=== PATIENT | male | born 1965 | race Caucasian/White ===

== ENCOUNTER 2016-08-07 06:31 | Day surgery (SDC) | payer OTHER ==
[2016-08-01 08:17] VITALS: BMI 43.0
--- NOTE | 2016-08-01 08:43 | PAT Medication Instructions ---
Service Date Aug 01, 2016. Current Home Medication List Amphetamine-Dextroamphetamine 10MG (Adderall 10MG), 10 MG PO UD PRN for ON WORKING DAYS Aspirin (Aspirin Ec), 81 MG PO HS Cholecalciferol (Vitamin D3), 1 TAB PO HS Cyanocobalamin (Vitamin B12), 1 TAB PO QAM Dulaglutide (Trulicity), 1 DOSE IM SUNDAY Glipizide (Glipizide), 2 TAB PO BID Metformin Hcl (Glucophage), 1,000 MG PO BID Testosterone Cypionate (Testosterone Cypionate), 1 DOSE INJ Q2WK Medication Instructions For Your Scheduled Surgery - Continue as usual: Dulaglutide (Trulicity), 1 DOSE IM SUNDAY Testosterone Cypionate (Testosterone Cypionate), 1 DOSE INJ Q2WK - Hold the following medications 48 hours prior to surgery: Metformin Hcl (Glucophage), 1,000 MG PO BID - Hold the following medications the morning of surgery: Glipizide (Glipizide), 2 TAB PO BID Cyanocobalamin (Vitamin B12), 1 TAB PO QAM Amphetamine-Dextroamphetamine 10MG (Adderall 10MG), 10 MG PO UD PRN for ON WORKING DAYS - Take the following medications as scheduled the night before surgery: Glipizide (Glipizide), 2 TAB PO BID Cholecalciferol (Vitamin D3), 1 TAB PO HS Aspirin (Aspirin Ec), 81 MG PO HS If you have any questions please call us at [phone] (Rose Gentile PA-C) or [phone] or [phone]
--- NOTE | 2016-08-01 09:38 | DIAGNOSTIC IMAGING REPORT ---
CHEST PREADMISSION(PA/LAT) HISTORY: Preop. COMPARISON: None. FINDINGS: Small linear density at the left lung base likely represents scarring or subsegmental atelectasis. The lungs are otherwise clear. No pleural effusions. No pneumothorax. The heart is normal in size. IMPRESSION: No acute process. Electronically signed by: Wisam Tolbert M.D. 08/01/2016 9:36 AM Dictated Date/Time: 08/01/2016 9:35 AM
[2016-08-01 09:44] LABS: BASO % 0.4 %; BASO ABS # 0.03 K/uL (0-0.2); COMPLETE YES; EOS % 4.5 %; HEMATOCRIT 42.9 % (42-52); IG% 0.1 %; LYMPH % 37.8 %; LYMPH ABS # 2.77 K/uL (1.2-3.4); MEAN CELL VOLUME 86.1 fL (80-100); MEAN CORPUSCULAR HEMOGLOBIN 30.5 pg (25-34); MEAN CORPUSCULAR HGB CONC 35.4 g/dl (32-36); MEAN PLATELET VOLUME 10.2 fL (7.4-10.4); MONO % 10.2 %; PLATELET COUNT 261 K/uL (130-400); RED BLOOD COUNT 4.98 M/uL (4.7-6.1); WHITE BLOOD COUNT 7.33 K/uL (4.8-10.8)
[2016-08-01 09:57] LABS: INR 0.9 (0.9-1.1); PARTIAL THROMBOPLASTIN RATIO 1.1
[2016-08-01 13:47] LABS: URINE APPEARANCE CLEAR (CLEAR); URINE BILIRUBIN NEG (NEG); URINE COLOR YELLOW; URINE NITRITE NEG (NEG); URINE PH 5.5 (4.5-7.5); URINE SPECIFIC GRAVITY 1.022 (1.000-1.030); UROBILINOGEN NEG (NEG)
[2016-08-01 13:58] LABS: MANUAL MICROSCOPIC REQUIRED? NO; REVIEW REQ? NO
--- NOTE | 2016-08-02 16:40 | HISTORY & PHYSICAL EXAMINATION ---
DATE OF ADMISSION: 08/07/2016 CHIEF COMPLAINT: Right shoulder pain. HISTORY OF PRESENT ILLNESS: The patient is a 51-year-old male who complains of right shoulder pain. The patient states that he has no unknown injury and that these symptoms have been getting progressively worse over time. The pain is described as aching, sharp and throbbing. He had a previous MRI done. He has not had any therapy for this condition. PAST MEDICAL HISTORY: Significant for diabetes, non-insulin dependent; and obesity. PAST SURGICAL HISTORY: Tonsillectomy. SOCIAL HISTORY: He rarely drinks alcohol. He denies smoking or IV drug use. He lives in a 1-story house. FAMILY HISTORY: On his father's side, he has a history of heart attacks. MEDICATIONS: Amphetamine and dextromethorphan 5 mg once daily, aspirin 81 mg once daily, glipizide 5 mg 2 tablets twice daily, metformin 1000 mg 1 tablet twice daily, testosterone 200 mg/mL intramuscular 1 mL every 2 weeks, Trulicity 0.75 mg per 0.5 mL injected 0.75 mg once per week, vitamin B12 1000 mcg, vitamin D 1000 units, glucosamine chondroitin, and 3 liters of O2 at bedtime as needed. ALLERGIES: AMOXICILLIN, QUINOLONES, CEPHALEXIN. REVIEW OF SYSTEMS: He denies fevers, chills, headaches, double vision, blurry vision, sore throat, hearing loss, tremors, dizziness, numbness or tingling; tired or thirsty, hot and cold intolerance, abdominal pain, nausea, vomiting, diarrhea, heartburn, chest pain, swelling into the legs or feet, frequency going to the bathroom, pain and burning with urination, wheezing, cough, shortness of breath, depression, thoughts to harm himself or harm others, nervousness or anxiousness. He is positive for joint pain, stiffness and swelling of the right shoulder. OBJECTIVE: GENERAL APPEARANCE: The patient is a 51-year-old male sitting in no acute distress dressed, well groomed, and well nourished. He is awake, alert and oriented x3. VITAL SIGNS: He is 5 feet 10 inches, 291 pounds, blood pressure 138/87. HEENT: Extraocular movements are intact. PERRLA. Mucosal is moist. No septal deviation. NECK: Supple with no lymphadenopathy, no JVD and no thyromegaly. HEART: Regular rate and rhythm with no murmurs or gallops. LUNGS: Clear to auscultation with no wheezing or rhonchi. ABDOMEN: Soft, nontender, nondistended. Normal bowel sounds. No hepatosplenomegaly. EXTREMITIES: Pain particular attention to the shoulder. He is able to actively flex 0-90 degrees, actively abduct 0-90 degrees, and externally rotate 0-25 degrees. He has pain over the AC joint over the biceps tendon. He has a positive empty can test, positive Nadeem's tests, positive Pierce-Alcides test. IMAGING DATA: MRI of the right shoulder without contrast shows high grade intrasubstance delamination tear of the posterior supraspinatus, also delamination of the superior infraspinatus, tenosynovitis of the long head of the biceps tendon with a split tear of the intra-articular tendon, intrasubstance delamination of the superior subscapularis, and diffuse glenohumeral synovitis. IMPRESSION: Right shoulder rotator cuff tear, subacromial spur, biceps tendinitis, possible subscapularis tear. PLAN: The patient is scheduled for a right shoulder arthroscopy with rotator cuff repair, subacromial decompression, distal clavicle excision, possible biceps tenotomy, possible subscapularis repair. The patient has had continuous pain prior to the MRI. The MRI showed muscle involvement of the rotator cuff, particularly the supraspinatus and infraspinatus tears. It was discussed with him that he would be a good candidate for rotator cuff repair. The patient wishes to proceed with right shoulder rotator cuff repair, subacromial decompression, distal clavicle excision, possible biceps tenotomy, possible subscapularis repair. Risks and benefits of surgery were discussed that included but not limited to blood loss, blood clots, nerve damage, blood vessel damage, infection, failure to relieve all symptoms, revision surgeries, and anesthesia risks. The patient understands these risks and wishes to proceed. All questions were answered to his satisfaction. DEVONTE
[~2016-08-07] VITALS: Ht 175.3 cm; Wt 132.0 kg
[~2016-08-07 06:31] MED LIST: AMPH10TA2 PO; ASPI81TA28 PO; CHOL1000 PO; CLINDAMYCIN 600 MG/54 ML D5W IV SCH; CYAN100020 PO; DULA1INJ IM; GLC5 PO; LACTATED RINGER'S 1000ML 1,000 ML IV SCH; METF-384 PO; ROPIVACAINE 0.5% 5 MG/ML 30 ML VIAL ONE; TEST1INJ2 INJ
[2016-08-07 06:42] VITALS: BP 156/90; PULSE 89; TEMP 36.9; O2SAT 94; Ht 175.3 cm; Wt 132.0 kg
[2016-08-07] MEDS ORDERED: FENTANYL CITRATE INJ 50 MCG/1 ML 2 ML VIAL ONE ×2 (06:57→08:22)
[2016-08-07] MEDS ORDERED: MIDAZOLAM HCL 1 MG/ML 2ML VIAL ONE (06:57)
[2016-08-07] MEDS ORDERED: ONDANSETRON INJ 2 MG/ML 2 ML VIAL IV PRN ×2 (07:15→10:30)
[2016-08-07] MEDS ORDERED: FENTANYL CITRATE INJ 50 MCG/1 ML 2 ML VIAL IV PRN (07:15)
[2016-08-07] MEDS ORDERED: ATROPINE SULFATE 0.1 MG/ML 5ML SYR IV PRN (07:15)
[2016-08-07] MEDS ORDERED: EpHEDrine SULFATE INJ 50 MG/ML AMP IV PRN (07:15)
--- NOTE | 2016-08-07 07:22 | History & Physical Bridge Note ---
H&P Re-Evaluation Bridge Note: I have examined the patient, reviewed the History & Physical and in the interval since the performance of the History & Physical I have noted the following changes of clinical significance: No changes noted
[2016-08-07] MEDS ORDERED: LIDOCAINE HCL 2% 2 ML VIAL (20MG/ML) ONE (08:20)
[2016-08-07] MEDS ORDERED: ONDANSETRON INJ 2 MG/ML 2 ML VIAL ONE (08:20)
[2016-08-07] MEDS ORDERED: PROPOFOL IV EMULSION 10 MG/ML 20 ML VIAL IV ONE (08:20)
[2016-08-07] MEDS ORDERED: LARYING-O-JET KIT (LTA) EXT ONE ×2 (08:20)
[2016-08-07] MEDS ORDERED: NEOSTIGMINE METHYLSULFATE 5 MG/5 ML SYR ONE (08:20)
[2016-08-07] MEDS ORDERED: ROCURONIUM BROMIDE 10 MG/ML 5 ML VIAL ONE (08:20)
[2016-08-07] MEDS ORDERED: GLYCOPYRROLATE INJ 0.2 MG/ML VIAL ONE (08:20)
[2016-08-07] MEDS ORDERED: PHENYLEPHRINE 100MCG/ML 5ML SYR ONE (08:37)
--- NOTE | 2016-08-07 09:35 | [facility] Post Operative Brief Note ---
Immediate Operative Summary Operative Date Aug 07, 2016. Pre-Operative Diagnosis Right shoulder rotator cuff tear, subacromial impingement, ac jt oa, biceps tear, possible subscapularis tear, labral tear, synovitis Post-Operative Diagnosis Right shoulder rotator cuff tear, subacromial spur, biceps tendinitis, no subscapularis tear Procedure(s) Performed Right Shoulder Arthroscopic Subacromial Decompression, Distal Clavicle Excision, Rotator Cuff Repair, Biceps Tenotomy, ext debridement Surgeon Dr. Mahmood Stretch Press Operator Surgeon(s) Chris Judge PA-C Estimated Blood Loss min Findings above Specimens none Drains 0 Anesthesia geta Complication(s) None Disposition Recovery Room / PACU
[2016-08-07] MEDS ORDERED: OXYC-57 PO (09:48)
--- NOTE | 2016-08-07 09:54 | Discharge Instructions ---
Discharge Instructions Admission Reason for Admission: Right Shoulder Impingement Syndrome, Osteoarthritis Discharge Discharge Diagnosis / Problem: Right shoulder Rotator cuff repair, SAD, DCE, biceps tenotomy Discharge Goals Goal(s): Decrease discomfort, Improve function Activity Recommendations Activity Limitations: per Instructions/Follow-up section Shower/Bathe: keep incision dry Driving or Machine Use: No driving till after follow up appointment Weightbearing Status: Right non-weightbearing . Instructions / Follow-Up Instructions / Follow-Up [facility] DISCHARGE INSTRUCTIONS: SHOULDER ARTHROSCOPY with or without Distal Clavicle Excision SELF CARE INSTRUCTIONS AFTER: A. You are allowed to use your arm actively as comfort allows. Recommend NOT doing repetitive overhead activity or heavy lifting. B. You should start Physical Therapy within 1-3 days from your surgery. You will be provided a prescription with specific restrictions, if needed, at time of discharge. C. You need to wear the sling for 6 weeks. A. At 48 hours post-operatively, you may change your dressing. . (Leave white steri-strips intact if present). Use band-aids and change daily. You are allowed to shower at this time and get the incision area wet, but DO NOT soak or submerge incision area in water. (No baths, swimming pools, hot tubs) B. Do NOT apply soap or any ointment/lotions directly over incision. C. You may use ice as needed to operative shoulder SPECIAL CARE INSTRUCTIONS: VERY IMPORTANT TO READ AND REVIEW A. There are a few signs you need to watch for after you are home. Call [facility] at [phone] if you experience any of the following: a. Increased severe shoulder pain. Some pain is expected especially when you exercise b. Increased swelling in your shoulder or arm; pain or swelling in either upper extremity. (Note: swelling and stiffness is normal and expected for several weeks post op, depending on type of shoulder surgery you had). c. Any fluid or drainage from the incision; redness of the incision. d. Shortness of breath or chest pain. B. Please call [facility] at [phone] if you have any questions or concerns about your operation or recovery. C. Call your physician if: a. Temperature is greater than 101 degrees (F). b. Pain is not relieved by prescribed pain medications. c. Increase drainage or redness from incision. d. Unanswered questions or concerns. D. Pain Medication: a. You will be prescribed pain medication upon discharge that should last till your first post-operative appointment. b. You may also take Advil or Ibuprofen between medication doses if you do not have any contraindication to taking them. c. You may also take Advil or Ibuprofen in place of your pain medication if the pain is tolerable. d. If you experience nausea and/or skin rash, discontinue this medication and contact our office for an alternative medication. e. Caution- narcotic pain medication can cause constipation. FOLLOW UP VISIT: Please call [facility] at [phone] to schedule a follow up appointment 10-14 days from your surgery date. Current Hospital Diet Patient's current hospital diet: Discharge Diet Recommended Diet: Diabetes Type 2 Diet Procedures Procedures Performed: Right Shoulder Arthroscopic Subacromial Decompression, Distal Clavicle Excision, Rotator Cuff Repair, Biceps Tenotomy, ext debridement Pending Studies Studies pending at discharge: no Laboratory Results Hemoglobin A1c Test 06/28/16 07:00 Range/Units Estimated Average Glucose 229 mg/dl Hemoglobin A1c 9.6 H 4.5-5.6 % Lipid Panel Test 06/28/16 07:00 Range/Units Triglycerides Level 141 0-150 mg/dl Cholesterol Level 165 0-200 mg/dl HDL Cholesterol 53 mg/dl Cholesterol/HDL Ratio 3.1 LDL Cholesterol, Calculated 84 mg/dl Medical Emergencies . Who to Call and When: Medical Emergencies: If at any time you feel your situation is an emergency, please call 911 immediately. . Non-Emergent Contact Non-Emergency issues call your: Surgeon Call Non-Emergent contact if: temperature is above 101, your pain is worsening , wound has increased drainage, wound has increased redness . "Provider Documentation" section prepared by Chris Judge. VTE Core Measure Inpt VTE Proph given/why not?: Treatment not indicated
--- NOTE | 2016-08-07 09:58 | OPERATIVE REPORT ---
DATE OF OPERATION: 08/07/2016 PREOPERATIVE DIAGNOSES: Right shoulder rotator cuff tear, impingement, acromioclavicular joint arthritis, biceps tear, labral tear, synovitis, possible subscapularis tear. POSTOPERATIVE DIAGNOSES: Same plus no subscapularis tear. PROCEDURES: Right shoulder rotator cuff repair, subacromial decompression, distal clavicle excision, biceps tenotomy, extensive debridement. SURGEON: Christiano Mahmood MD LOG DECK TENDER: Chris Judge PA-C who was necessary for assistance of procedure with positioning, prepping, draping, retraction and closure. ANESTHESIA: General endotracheal anesthesia with interscalene block. SPECIMENS: None. COMPLICATIONS: None. ESTIMATED BLOOD LOSS: Minimal. INDICATIONS FOR PROCEDURE: The patient is a 51-year-old male progressive right shoulder pain and MRI demonstrated tear of the rotator cuff. Discussed various treatment measures, he wished to proceed with arthroscopic repair. Risks, benefits, and alternatives of surgery including but not limited to infection, DVT, pain, stiffness, need for urgent surgery, failure to relieve all symptoms, damage to blood vessels, damage to nerves, risks of anesthesia were discussed with patient and he wished to proceed. DESCRIPTION OF PROCEDURE: The patient was identified, laterality was confirmed and marked. He received a preoperative antibiotic as well as interscalene block. He was transferred to the operating room, placed in supine position, induced with general endotracheal anesthesia per the anesthesia staff. He was then safely transferred to lateral decubitus position, secured by cedeño bag and axillary roll was placed. All pressure points were well padded. Limb was placed in 10 pounds of lateral traction and then prepped and draped in usual sterile manner with ChloraPrep. Port sites were anesthetized with 1% lidocaine with epinephrine. I made a standard posterior viewing portal made through a stab incision, bluntly entered the glenohumeral joint and spinal localization established anterior superior lateral portal. He had degenerative tearing of the anterior superior posterior aspect of the glenoid labrum. He also had some degenerative changes to the inferior aspect of the glenoid that was debrided. He had a full thickness rotator cuff tear of the supraspinatus seem to be articular side. He had significant tearing to the long head of biceps tendon. This was released from its insertion into the superior labrum with electrocautery device. Synovitic change in the anterior aspect of the joint was debrided utilizing a shaver. The subscapularis was inspected and found to be intact. Cartilage of the humeral head was relatively normal. He had some degeneration inferiorly of the glenoid cartilage. All the instrumentation was removed from the joint and as I entered the subacromial space and established a lateral portal, a fairly thickened bursa that was debrided. I identified the region of the rotator cuff and debrided this back to good healthy tissue. I debrided the footprint to establish good bleeding response and then through a stab incision, I placed a 5.5 mm triple loaded Healicoil suture anchor that passed in a horizontal mattress fashion with a FastPass. I then tied the sutures from posterior to anterior utilizing sliding Dawn knots reinforced with 3 half hitches and alternating post. I cut one suture limb from each knot and placed the 3 sutures into a 5.5 mm footprint anchor placed anterolaterally completing a double row construct. I then released the CA ligament with cautery and performed a subacromial decompression first removing the anterior inferior spur from laterally and then completing in a cutting block technique. I then performed a distal clavicle excision, removing a total of 10 mm of bone. All instrumentation was removed from the shoulder. Port sites were closed with nylon. Sterile dressing was applied and sling placed. All needle and sponge counts were correct at the end of the procedure. The patient was transferred to the PACU in stable condition without apparent complication. I attest to the content of the Intraoperative Record and any orders documented therein. Any exceptio ns are noted below.
--- NOTE | 2016-08-07 10:18 | Anesthesiology Progress Note ---
Anesthesia Post Op Note Date & Time Aug 07, 2016 at 10:18 Vital Signs Pain Intensity: 0 Vital Signs Past 12 Hours Date Time Temp Pulse Resp B/P Pulse Ox O2 Delivery O2 Flow Rate FiO2 08/07/16 09:54 70 18 100 08/07/16 09:54 71 18 08/07/16 09:53 152/89 08/07/16 09:52 155/86 08/07/16 09:49 78 18 99 08/07/16 09:49 77 18 08/07/16 09:48 169/102 08/07/16 09:44 36.3 77 16 166/93 100 Mask 10 08/07/16 09:44 73 15 99 08/07/16 09:44 73 15 08/07/16 06:42 36.9 89 20 156/90 94 Room Air Notes Mental Status: alert / awake / arousable, participated in evaluation Pt Amnestic to Procedure: Yes Nausea / Vomiting: adequately controlled Pain: adequately controlled Airway Patency, RR, SpO2: stable & adequate BP & HR: stable & adequate Hydration State: stable & adequate Anesthetic Complications: no major complications apparent
[2016-08-07 10:30] VITALS: BP 142/74; PULSE 70; TEMP 36.6; O2SAT 93
[2016-08-07] MEDS ORDERED: OXYCODONE HCL IR 5 MG TAB (IMMEDIATE RELEASE) PO PRN ×2 (10:30)
[2016-08-07 11:00] VITALS: BP 142/74; PULSE 64; O2SAT 95
== END 2016-08-07 12:05 | disposition home or self-care (01) ==
LOC: C.ACU 06:31
PROVIDERS: ATTEND Orthopaedic Surgery
DX: M75.101 Unspecified rotator cuff tear or rupture of right shoulder, not specified as traumatic (principal); M75.41 Impingement syndrome of right shoulder; S46.111A Strain of muscle, fascia and tendon of long head of biceps, right arm, initial encounter; M65.811 Other synovitis and tenosynovitis, right shoulder; X58.XXXA Exposure to other specified factors, initial encounter; Z79.899 Other long term (current) drug therapy; G47.33 Obstructive sleep apnea (adult) (pediatric); E66.01 Morbid (severe) obesity due to excess calories; M19.011 Primary osteoarthritis, right shoulder; I10 Essential (primary) hypertension; E11.9 Type 2 diabetes mellitus without complications; Z90.89 Acquired absence of other organs; Z82.49 Family history of ischemic heart disease and other diseases of the circulatory system; Z88.1 Allergy status to other antibiotic agents